=== PATIENT | female | born 1965 | race Caucasian/White ===

== ENCOUNTER 2018-08-16 17:45 | Emergency (ER) | payer BC, SELFPAY ==
[2018-08-16 17:51] VITALS: BP 154/61; PULSE 90; RESP 16; TEMP 37.1; O2SAT 97
--- NOTE | 2018-08-16 18:09 | ED.GENADUL_ITS ---
Discharge Plan Disposition Patient Disposition: HOME Discharge Details Chief Complaint: Laceration Clinical Impression: Laceration of right index finger Primary Care Provider: Mayo Mancia ED Provider: Jake Del Rio Home Meds and New Rx's Prescriptions: No Action multivitamin [One Daily] 1 EACH tablet 1 ea PO DAILY RF: 0 aspirin [Aspir-81] 81 MG tablet,delayed release (DR/EC) 81 mg PO DAILY RF: 0 calcium carb-mag ox-zinc sulf 1 EACH tablet 1 ea PO DAILY RF: 0 glucosamine sulfate [Glucosamine] 500 mg Tablet 500 mg PO DAILY RF: 0 Discharge Instructions Instructions: Finger Laceration (ED) Referrals: Mayo Mancia MD [Primary Care Provider] - 1 week Discharge Data Discharge Date/Time-TO BE ENTERED AT DEPARTURE: 08/16/18 19:19 Medical Decision Making This is a nontoxic-appearing 53-year-old female presenting to the emergency department with a right proximal index finger laceration. Simple layer closure. No complications with laceration repair. Wound was dressed with bacitracin and Band-Aid patient educated on wound care. She will need to return to the emergency department or follow-up with primary care provider in 7 to 10 days for wound evaluation and suture. HPI General Date/Time Provider Initiated Documentation: 08/16/18 18:05 . HPI Narrative: Rosita mary is a 53-year-old female presented to the ED with a right second digit laceration from a steak knife which occurred at home roughly 30 minutes ago. She denies any numbness or tingling of the digit. She was able to get bleeding controlled with direct pressure. She is unsure of her tetanus status Related Data Home Medications Medication Instructions Recorded Confirmed aspirin [Aspir 81] 81 mg PO DAILY tab-cap 09/12/15 08/16/18 calcium carb-mag ox-zinc sulf 1 ea PO DAILY 09/12/15 08/16/18 multivitamin [One Daily] 1 ea PO DAILY 09/12/15 08/16/18 glucosamine sulfate [Glucosamine] 500 mg PO DAILY 08/16/18 08/16/18 Allergies Allergy/AdvReac Type Severity Reaction Status Date / Time amoxicillin Allergy Severe RASH Unverified 08/16/18 17:55 latex Allergy Severe RASH Unverified 08/16/18 17:55 Penicillins Allergy Severe RASH Unverified 08/16/18 17:55 doxycycline AdvReac Intermediate Skin Rash Unverified 08/16/18 17:56 General Stated Complaint: Laceration WALLACE: 4 Review of Systems Constitutional Denies weakness Musculoskeletal Denies joint swelling, Denies numbness, Denies stiffness and Denies tingling Neurologic Denies numbness, Denies tingling, Denies paresthesias and Denies weakness Hematologic/Lymphatic Denies easy bleeding and Denies easy bruising [facility] Social History Smoking/Tobacco Use Status: Never Alcohol Intake: never Drug use: Never Substance use type: does not use Do you feel safe at home: Yes Do you feel safe in your relationship?: Yes Exam Const General: cooperative, healthy appearing and comfortable Nutritional Appearance: average body habitus Orientation: alert, awake and oriented x3 HENMT Head: normal to inspection Ears: hearing grossly normal bilaterally General nose exam: external nose normal Cardio Pulses: normal peripheral pulses Skin General skin exam: no rashes or lesions noted Extrem Right upper extremity: hand Details: normal capillary refill and laceration (Roughly 2 cm laceration involving the lateral aspect of the proximal second digit. No evidence of infection. Bleeding controlled) Course Vital Signs Temperature 37.1 C 08/16/18 17:51 Pulse 90 08/16/18 17:51 Respiratory Rate 16 08/16/18 17:51 Blood Pressure 154/61 H 08/16/18 17:51 Pulse Oximetry 97 08/16/18 17:51 Temperature 37.1 C 08/16/18 17:51 Temperature Source Skin 08/16/18 17:51 Pulse 90 08/16/18 17:51 Respiratory Rate 16 08/16/18 17:51 Respiratory Effort 08/16/18 17:58 Blood Pressure 154/61 H 08/16/18 17:51 Blood Pressure Position Sitting 08/16/18 17:51 Pulse Oximetry 97 08/16/18 17:51 Oxygen Delivery Method Room Air 08/16/18 17:51 Oxygen Flow Rate 0 08/16/18 17:51 Pain Level 1 08/16/18 17:51 Procedures Laceration Laceration 1: Site: hand (Proximal right index) Side (If applicable): right Size (cm): 2 Description: linear Depth: simple, single layer Local Anesthetic: Lidocaine 1% Amount of anesthesia used (mL): 2 Pre-repair: wound explored and irrigated extensively Skin layer closed with: other (Prolene) Size (cm): 6-0 Number of sutures: 3 Technique: simple, interrupted Nerve Block Nerve Block 1: Time out performed: No Local Anesthetic: Lidocaine 1% Amount of anesthesia used (mL): 3 Nerve Blocks: digital (right index finger) Patient Tolerated Procedure: well Complications: none
[2018-08-16] MEDS: Tetanus & Diphtheria Tox,ADULT 0.5 ML VIAL IM (18:24)
== END 2018-08-16 19:19 | disposition home or self-care (01) ==
PROVIDERS: Emergency Provider Physician Assistant; PCP Family Medicine
DX: S61.210A Laceration without foreign body of right index finger without damage to nail, initial encounter (principal); W26.0XXA Contact with knife, initial encounter
CPT/HCPCS: 12001; 90471

== ENCOUNTER 2018-09-03 16:08 | Outpatient (REF) | payer BC, SELFPAY ==
--- NOTE | 2018-09-03 14:00 | SKI_PTH ---
PATIENT: Ailyn Merrill LOC: YO U#:[id number] AGE/SX: 53/F ROOM: RE09/03/[address]: Angelika Womack APRN : 1965 BED: DIS: 09/03/2018 SPEC #: [id number] RECD: 09/04/18 11:57 STATUS: ANALIA REKeri #: [id number] SRIDEVI: 09/03/18 14:[address]: Angelika Womack DEPT: Surgical Specimen RECD BY: Bessie Gilliam ENTERED: 09/04/18 11:58 SP TYPE: [facility] DR: Mayo Mancia MD Tissues: 1 - SKIN BIOPSY(SHAVE/PUNCH) Procedures: SKIN LEVEL 4 Comments: [id number]
== END 2018-09-03 16:28 ==
LOC: LBN 16:08
PROVIDERS: PCP Family Medicine
DX: D22.5 Melanocytic nevi of trunk (principal)
CPT/HCPCS: 88305

== ENCOUNTER 2019-01-22 07:00 | Outpatient (CLI) | payer BC, SELFPAY ==
[2019-01-22 13:17] LABS: Calculated LDL 191 mg/dL; Cholesterol 293 mg/dL (50-200); HDL Cholesterol 89 mg/dL (40-60); Triglyceride 66 mg/dL (30-150)
[2019-01-22 13:34] LABS: Hemoglobin A1C 5.6 % (4.5-6.2)
== END 2019-01-22 07:20 ==
PROVIDERS: Visit Provider Nurse Practitioner
DX: Z13.6 Encounter for screening for cardiovascular disorders (principal); Z13.1 Encounter for screening for diabetes mellitus
CPT/HCPCS: 36415; 80061; 83036

== ENCOUNTER 2023-01-02 18:48 | Emergency (ER) | payer BC, SELFPAY ==
[2023-01-02] VITALS (37 sets, daily range): BP systolic 120–157; BP diastolic 46–80; PULSE 76–111; RESP 14–28; TEMP 37.2; O2SAT 98
--- NOTE | 2023-01-02 19:49 | ED.GENADUL_ITS ---
Discharge Plan Disposition Patient Disposition: Home Discharge Details Clinical Impression: Pelvic mass in female, Abdominal pain, Cholelithiasis, Nausea, Strabismus Primary Care Provider: Compa Awan ED Provider: Lesvia Wilson Home Meds and New Rx's Prescriptions: New ondansetron 4 mg tablet,disintegrating 4 mg PO .Every 3 hours PRNQty: 10 0RF No Action [place] Oil-1000 1,000-200 mg capsule 1 cap PO DAILY ondansetron HCl [Zofran] 4 mg tablet 4 mg PO Q8H PRN (Reason: nausea and vomiting) Qty: 30 0RF multivitamin [One Daily] 1 EACH tablet 1 ea PO DAILY calcium carb-mag ox-zinc sulf 1 EACH tablet 1 ea PO DAILY glucosamine sulfate [Glucosamine] 500 mg Tablet 500 mg PO DAILY Discharge Instructions Instructions: Gallstones (ED), Acute Nausea and Vomiting (ED), Abdominal Pain (ED) Additional Instructions: 1. You should be contacted by the gynecology office for a follow-up appointment. Tell them you were seen in the emergency department and had a pelvic mass seen on CT scan. The radiologist recommended a pelvic ultrasound for further evaluation. 2. You should alternate 1000 mg of acetaminophen every 3 hours with 400 to 600 mg of ibuprofen as needed for pain. 3. Take ondansetron (Zofran) every 3 hours as needed for nausea. 4. Return to the emergency department for any new or worrisome symptoms. Discharge Data Discharge Physician: Lesvia Wilson Medical Decision Making This is a 57-year-old female who does not seek regular medical care who presents with 2 days of of abdominal pain which she describes as 10 out of 10 in severity. She has not taken anything for the pain at home. She has had nausea but no vomiting. She has a history of IBS. She denies any dysuria. She has had no previous abdominal surgery. She denies any fever or vaginal discharge. She was seen at [facility] urgent care today and had a urine test. The pain came on gradually and is located in the right lower quadrant. She certainly could have appendicitis or right-sided diverticulitis. The patient does have a history of IBS but might also have undiagnosed Crohn's disease. My plan is to obtain blood work and establish an IV. We will check her white count for leukocytosis and left shift. We will check her H&H and her comprehensive metabolic panel for LFTs electrolytes glucose and renal function. We will obtain a CT of the abdomen and pelvis and I will order acetaminophen and ketorolac for pain Differential Diagnosis Differential Diagnosis: Appendicitis. Ovarian torsion or abscess, UTI, right- sided diverticulitis Medical Records Medical records reviewed: Yes I reviewed the patient's medical records. Imaging Data Radiologic Study: Imaging: CT Scan (CT abdomen and pelvis with IV contrast) Radiologist's impression: Impression: 1. Pelvic mass, possible cervical. Recommend pelvic ultrasound for further evaluation. 2. Benign hepatic hypodensities. No further imaging required. 3. Cholelithiasis and gallbladder sludge without evidence of acute cholecystitis Lab Data Lab results reviewed: Yes I reviewed the patient's lab results. HPI General Mode of arrival: ambulatory . Date/Time Provider Initiated Documentation: 01/02/23 19:49 . Limitations to Documentation: no limitations . Information obtained by: patient, family, RN notes reviewed and old records reviewed . History of Present Illness with intensity rated at 10. and is localized to the abdomen. and it has been constant. Patient notes no other symptoms. and loss of appetite; denies chest pain, cough, fever/chills and shortness of breath. Patient did receive the following treatments prior to arrival, none HPI Narrative: Time seen was 1950 in bed 6. The patient is a 57-year-old female brought in by her for right lower quadrant abdominal pain. The patient, who has a history of IBS, states she does not see doctors on a regular basis. She has no prior history of abdominal surgeries and is postmenopausal. She states that the pain began yesterday at about 9 AM. She had eaten cereal at about 715. She states the pain began in the right lower quadrant and has gradually increased in severity. She describes it as constant and crampy though it waxes and wanes in severity. Currently the pain is 10 out of 10. She has not taken any medications for the pain. She usually walks about a mile a day and today she felt that walking aggravated the pain. She has had nausea without vomiting. She states that she does not usually get diarrhea with her IBS but she often will have formed stools multiple times a day. Today she had 5 formed stools. She denies any dysuria or vaginal discharge. She denies any fevers or chills. She has not taken any medications for the pain. They went to urgent care today and did a urine sample which she was told was negative. The pain radiates from the right lower quadrant to the left lower quadrant. She has never had any past similar episodes. She denies any trauma. She denies any dizziness headache chest pain shortness of breath or back pain. She denies any numbness tingling or weakness in her legs. Related Data Home Medications Medication Instructions Recorded Confirmed calcium carbonate 333 mg-magnesium 1 ea PO DAILY 09/12/15 01/02/23 oxide 133 mg-zinc sulf 5 mg tablet multivitamin (One Daily tablet) 1 ea PO DAILY 09/12/15 01/02/23 glucosamine sulfate 500 mg tablet 500 mg PO DAILY 08/16/18 01/02/23 (Glucosamine) salmon oil-omega-3 fatty acids 1 cap PO DAILY 08/24/18 01/02/23 1,000 mg-200 mg capsule (Bow[place]in Oil-) ondansetron HCl 4 mg tablet 4 mg PO Q8H PRN nausea and 01/21/19 01/02/23 (Zofran) vomiting #30 tabs ondansetron 4 mg disintegrating 4 mg PO .Every 3 hours PRN #10 tabs 01/03/23 tablet Previous Rx's Medication Instructions Recorded ondansetron HCl 4 mg tablet 4 mg PO Q8H PRN nausea and 01/21/19 (Zofran) vomiting #30 tabs ondansetron 4 mg disintegrating 4 mg PO .Every 3 hours PRN #10 tabs 01/03/23 tablet Allergies Allergy/AdvReac Type Severity Reaction Status Date / Time amoxicillin Allergy Severe RASH Verified 01/02/23 19:11 latex Allergy Severe RASH Verified 01/02/23 19:11 Penicillins Allergy Severe RASH Verified 01/02/23 19:11 adhesive Allergy Intermediate Redness Verified 01/02/23 19:11 and Swelling benzalkonium Allergy Intermediate Skin Verified 01/02/23 19:11 Redness and Swelling doxycycline AdvReac Intermediate Skin Rash Verified 01/02/23 19:11 vaccine adjuvant system, AdvReac Intermediate Localized Verified 01/02/23 19:11 [id number] liposomal swelling, [From Shingrix (PF)] nausea, GI sx, fatigue varicella-zoster virus AdvReac Intermediate Localized Verified 01/02/23 19:11 glycoprotein E, recombinant swelling, [From Shingrix (PF)] nausea, GI sx, fatigue General Stated Complaint: Abd Prob WALLACE: 3 Review of Systems Narrative: see hpi Constitutional Constitutional: Reports anorexia, Denies chills, Denies fever(s), Denies headache(s) and Reports poor appetite Eyes Comments: The patient has a history of bilateral lazy eyes. She has never had strabismus surgery ENT Ears, Nose, Mouth, and Throat: Denies dysphagia, Denies vertigo, Denies dizziness, Denies headache(s), Denies neck pain and Denies odynophagia Cardiovascular Cardiovascular: Denies chest pain, Denies diaphoresis, Denies syncope and Denies dyspnea Respiratory Respiratory: Denies cough and Denies dyspnea Gastrointestinal Gastrointestinal: Reports abdominal pain, Denies belching, Denies melena, Denies hematochezia, Denies change in bowel habits, Denies change in stool character, Denies coffee ground emesis, Denies constipation, Reports cramping, Denies dysphagia, Denies excessive flatus, Denies heartburn, Denies fecal incontinence, Denies diarrhea, Denies loose stools, Reports nausea, Denies odynophagia, Denies vomiting and Denies hematemesis Genitourinary Genitourinary: Denies hematuria, Denies dysuria, Reports pelvic pain and Denies vaginal discharge Comments: The patient is postmenopausal. The patient has had Pap smears in the past but not for many years. Musculoskeletal Musculoskeletal: Denies arthralgias, Denies neck pain, Denies numbness and Denies tingling Integumentary/Breasts Skin/Breast: Denies photosensitivity and Denies wounds Neurologic Neurologic: Denies vertigo, Denies dizziness, Denies syncope, Denies headache(s), Denies numbness, Denies sensory deficit and Denies tingling Psychiatric Psychiatric: Reports anxiety Endocrine Endocrine: Denies polyuria Hematologic/Lymphatic Comments: No history of immune compromise. She is not on therapeutic anticoagulants Allergic/Immunologic Comments: Allergies per nursing note PFSH All Active Problems (Updated 01/03/23 @ 00:05 by Lesvia Wilson MD) Pelvic mass in female (Acute) Abdominal pain (Acute) Cholelithiasis (Acute) Nausea (Acute) Strabismus (Acute) Seasonal allergic reaction (Chronic) Vaginitis (Acute) Anxiety disorder (Acute) Atypical mole (Chronic) Rash (Acute) Social History Smoking/Tobacco Use Status: Never Smoking risk assessment performed?: Yes Alcohol Intake: never Drug use: Never Substance use type: does not use Do you feel safe at home: Yes Do you feel safe in your relationship?: Yes Female Reproductive History Menstrual Menopause type: natural Exam Narrative Exam Narrative: The patient is a well-developed well-nourished female lying on the stretcher. She appears mildly uncomfortable. She is normotensive, she is not tachycardic tachypneic or febrile her room air O2 sat is 98%. Her GCS is 15 Const General: cooperative, healthy appearing, comfortable, no acute distress, well developed, well groomed and well hydrated Nutritional Appearance: average body habitus and well nourished Orientation: alert, awake and oriented x3 HENMT Head: normal to inspection, normocephalic and atraumatic Ears: hearing grossly normal bilaterally and external ears normal General nose exam: external nose normal, nares normal and no nasal discharge Face and sinus: normal facial exam, sinuses nontender and face symmetric Mouth: oral mucosae normal, lip normal, tongue normal, oropharynx normal, moist mucous membranes and other (Normal phonation. The patient is handling secretions.) Throat: posterior oropharynx normal and uvula midline Eyes Eyelids: eyelids normal Conjunctivae: conjunctivae normal Sclera: sclerae normal Cornea: corneas normal Pupils: PERRL EOM: EOM intact bilaterally and No nystagmus Other: The patient has strabismus bilaterally. Neck Neck: normal visual inspection, full ROM, no lymphadenopathy, no meningeal signs, trachea midline and supple Lymphatic: no lymphadenopathy noted Chest Chest: normal inspection of the chest Resp Effort & Inspection: normal respiratory effort, able to speak in complete sentences, no audible wheezes, no nasal flaring, no respiratory distress, no retractions, no stridor, not tachypneic, no tracheal deviation, no use of accessory muscles, No prolonged expiratory phase and other (Normal inspiratory to expiratory ratio.) Auscultation: clear to auscultation bilaterally, no rales, no rhonchi, no wheezes and no rubs Tactile Fremitus: tactile fremitus absent Cardio Jugular venous pressure: no JVD Palpation: normal PMI Rate: regular rate Rhythm: regular rhythm Heart Sounds: S1 normal, S2 normal, no gallops, no murmurs and no rubs GI Inspection: normal to inspection and non-distended Palpation: soft, no hepatosplenomegaly and no guarding Percussion: normal to percussion Auscultation: normal bowel sounds General: No CVA tenderness Back/Spine/Pelvis Back: no CVA tenderness and No back tenderness Cervical Spine: normal cervical lordosis, cervical ROM normal, No cervical muscular tenderness, No pain with cervical ROM, No cervical spinal tenderness and No step off deformity Thoracic/Lumbar Spine: thoracic and lumbar spine normal to inspection, No thoracic spinal tenderness and No lumbar spinal tenderness Pelvis: no pain with anterior-posterior compression and no pain with lateral compression Skin General skin exam: no rashes or lesions noted, turgor normal, no petechiae, no purpura and other (Skin is normal for ethnicity.) Lesions: no lesions Rashes: no rashes Trauma: no lacerations or abrasions Neuro General: patient alert, patient awake, patient oriented x3, moves all extremities, no meningeal signs, no focal motor deficits and CN's II-XI intact bilaterally Cranial Nerves: CN's II-XI intact bilaterally, PERRL, accommodation normal, EOM intact bilaterally, no nystagmus, facial strength normal, tongue midline, hearing normal and no nystagmus Cognition: normal cognition Speech: speech normal Gait: normal gait Motor: muscle tone normal throughout and strength 5/5 throughout Sensory Exam: no sensory deficits noted Extrem General: normal to inspection, full ROM, capillary refill normal, no clubbing, cyanosis or edema and no calf tenderness Psych Appearance: grossly normal Affect: normal affect Attitude: cooperative Thought Process: normal Thought Content: normal Insight: insight good Judgment: judgment good Other: The patient appears to have capacity make medical decisions. Course Reevaluation(s) Time: 00:00 Reevaluation: I have discussed the findings of the CT including the cholelithiasis and the pelvic mass. I have advised her that the gynecology office will be calling her to arrange a follow-up appointment and likely outpatient ultrasound. I have advised her to alternate acetaminophen every 3 hours with ibuprofen as needed for pain. She is requesting a prescription for nausea medicine. I will discharge her with some Zofran ODT. Vital Signs Vital signs: Vital Signs Temperature 37.2 C 01/02/23 19:06 Pulse 92 H 01/02/23 19:06 Respiratory Rate 16 01/02/23 19:06 Blood Pressure 138/69 01/02/23 19:06 Pulse Oximetry 98 01/02/23 19:06 Temperature 37.2 C 01/02/23 19:06 Temperature Source Skin 01/02/23 19:06 Pulse 92 H 01/02/23 19:06 Respiratory Rate 16 01/02/23 19:06 Respiratory Effort Normal 01/02/23 19:06 Blood Pressure 138/69 01/02/23 19:06 Blood Pressure Position Sitting 01/02/23 19:06 Pulse Oximetry 98 01/02/23 19:06 Oxygen Delivery Method Room Air 01/02/23 19:06 Oxygen Flow Rate 0 01/02/23 19:06 Pain Level 9 01/02/23 19:06 Critical Care Time Critical Care Time Critical Care Time: Yes Total Critical Care Time: 39 Attestation: This includes time at the bedside, review of labs and x-rays review of old records.
[2023-01-02] MEDS: Ketorolac 15 MG/ML VIAL IVP (20:13)
[2023-01-02 20:29] LABS: Abs Immature Grans 0.04 10^3/uL (0.0-0.06); Absolute Basophil Count 0.03 10^3/uL (0.0-0.2); Absolute Lymphocyte Count 1.36 10^3/uL (1.2-3.4); Absolute Monocyte Count 0.63 10^3/uL (0.1-0.8); Absolute Neutrophil Count 7.27 10^3/uL (1.2-6.7); Basophils % 0.3; HCT 42.8 % (36.0-46.0); HGB 14.6 g/dL (11.2-15.7); Immature Grans % 0.4; Lymphocytes % 14.6; MCH 29.8 pg (27.0-33.0); MCHC 34.1 % (32.0-36.0); MCV 87 fL (80-95); MPV 10.8 fL (8.0-11.0); Monocytes % 6.8; Neutrophils % 77.9; Platelet Count 280 10^3/uL (130-400); RDW 13.3 % (11.7-14.6); RDW-SD 42.7 fL; WBC 9.33 10^3/uL (4.4-10.8)
[2023-01-02 20:42] LABS: Lipase 22 U/L (16-77)
[2023-01-02 20:44] LABS: Prothrombin Time 10.1 sec (9.3-11.0)
[2023-01-02 20:50] LABS: ALT 38 U/L (14-59); AST 25 U/L (15-37); Albumin 4.1 g/dL (3.4-5.0); Alkaline Phosphatase 90 U/L (46-116); Anion Gap 8.6 mmol/L (3-11); BUN 12 mg/dL (7-18); Bilirubin, Total 0.4 mg/dL (0.2-1.0); CO2 28.4 mmol/L (21.0-32.0); CREATININE 0.8 mg/dL (0.55-1.02); Calcium 9.5 mg/dL (8.5-10.1); Chloride 97 mmol/L (98-107); Estimated GFR 85.35 (mL/min/1.73m2); Glucose 114 mg/dL (74-106); Magnesium 1.9 mg/dL (1.8-2.4); Potassium 4.1 mmol/L (3.5-5.1); Sodium 134 mmol/L (136-145); Total Protein 8.4 g/dL (6.4-8.2); Troponin I < 50 ng/L (<or=60)
[2023-01-02] MEDS: Normal Saline 1,000 ML 1000 ML IV (21:01)
[2023-01-02 21:49] LABS: Bilirubin Negative (Negative); Blood Negative (Negative); Clarity Clear (Clear); Glucose Negative (Negative); Ketones >=160 mg/dL (Negative); Leukocyte Esterase Negative (Negative); Nitrite Negative (Negative); Urobilinogen 0.2 mg/dL (Up to 0.2)
[2023-01-02 21:59] LABS: Bacteria Rare HPF (Negative); C & S Indicated? No; Casts Negative LPF (Negative); Crystals Negative HPF (Negative); Epithelial Cells Rare HPF (Negative); Mucus Moderate (Negative); RBC 0-2 HPF (0-2); WBC Negative HPF (0-5)
[2023-01-02] MEDS: Normal Saline - Diluent 50 ML VIAL IJ (22:36)
[2023-01-02] MEDS: Omnipaque 350 MG/ML 100 ML BTL IJ (22:36)
[2023-01-02] MEDS: Normal Saline Flush 10 ML SYR IVP (22:36)
[2023-01-02] MEDS: ACETAMINOPHEN 1,000 MG/100 ML BTL 400 MG IVPB (22:37)
--- NOTE | 2023-01-02 22:40 | DI.CT_ITS ---
Exam(s) CT ABDOMEN PELVIS W EXAM: CT ABDOMEN PELVIS W CLINICAL HISTORY: RLQ pain TECHNIQUE: Imaging Protocol: Axial computed tomography images with coronal and sagittal reformatted images were created and reviewed CONTRAST MATERIAL: Intravenous: Omnipaque 350 Contrast volume:7 mL Oral: No COMPARISON: No exams were available for comparison FINDINGS: ABDOMEN: Lung Bases: There is a 0.5 cm nodule at the base of the right lower lobe. Pendant atelectatic change s are seen in the lung bases. Liver: Normal density. There are few tiny less than 3 mm densities seen in the liver. They are too s mall for further characterization. There is a 0.5 cm round well-circumscribed hypodense nodule in th e left lobe of the liver. It is too small for further characterization but reflect a small cyst. Portal, Superior Mesenteric, and Splenic Veins: Unremarkable. Gallbladder and Biliary Tract: Gallstones. No biliary ductal dilatation. Probable small amount of s ludge. Pancreas: Normal density, no abnormal calcifications or inflammatory process. Spleen: Calcified granuloma. Adrenals: No masses seen. Kidneys: Normal size, contour and axis. No radiodense stones or obstructive uropathy. No masses seen. Abdominal Aorta: Abdominal portion non-dilated. Atherosclerosis. Bowel: No obstruction or bowel wall thickening. No evidence of appendicitis. Peritoneal Cavity: There is a small amount of ascites in the pelvis. No free air. Lymph Nodes: Within normal limits. Bones: Within normal limits for the patient's age. Soft Tissues: Unremarkable. PELVIS: Bladder: Symmetric distention, no gross wall thickening. Reproductive Organs: There is a heterogeneous 4.9 x 4.3 cm soft tissue mass in the cul-de-sac. It li es in close proximity to the cervix, uterus and the right ovary. It does appear to be separate from the adjacent rectosigmoid colon. It is predominantly solid but there does appear to be a cystic comp onent posteriorly on the right measuring 1.3 x 1.5 cm. Lymph Nodes: Within normal limits. Bones: Within normal limits for the patient's age. IMPRESSION: 1. Pelvic mass measuring at least 4.9 x 4.3 cm in the cul-de-sac. It lies in close proximity to the cervix, uterus and right ovary. Neoplasm should be considered. Pelvic ultrasound and or MRI of the pelvis is recommended for further evaluation. 2. Small amount of pelvic ascites. 3. 0.5 cm nodule at the base of the right lower lobe. CT scan of the chest is recommended for furthe r evaluation. Unexpected findings RADIATION DOSE DELIVERED: 479.04mGy.cm Total DLP DATA REPOSITORY: All CT scans at this facility are submitted to the National Radiology Data Registry (NRDR) Dose Index Registry (DIR) with the [employer] [place] [employer] (A[employer]). RADIATION OPTIMIZATION: All CT scans at this facility use at least one of these dose optimization te chniques: automated exposure control; mA and/or kV adjustment per patient size (includes targeted exa ms where dose is matched to clinical indication); or iterative reconstruction.
--- NOTE | 2023-01-02 23:32 | DI.VRAD_ITS ---
PROCEDURE INFORMATION: Exam: CT Abdomen And Pelvis With Contrast Exam date and time: 01/02/2023 10:34 PM Age: 57 years old Clinical indication: Abdominal pain; Other: Rlq TECHNIQUE: Imaging protocol: Computed tomography of the abdomen and pelvis with contrast. Radiation optimization: All CT scans at this facility use at least one of these dose optimization techniques: automated exposure control; mA and/or kV adjustment per patient size (includes targeted exams where dose is matched to clinical indication); or iterative reconstruction. Contrast material: OMNI 350; Contrast volume: 70 ml; Contrast route: INTRAVENOUS (IV); COMPARISON: No relevant prior studies available. FINDINGS: Lungs: Minimal scarring and/or subsegmental atelectasis in the posterior lung bases. Diaphragm: Small sliding hiatal hernia. Liver: Subcentimeter hypodensities throughout the liver, too small to characterize, likely benign cysts or hemangiomas. Gallbladder and bile ducts: Dependent gallstone. Slight dependent hyperdensity suggests gallbladder sludge. No gallbladder wall thickening or pericholecystic fluid. No biliary duct dilatation. Pancreas: Normal. No ductal dilation. Spleen: Single small round calcification in the spleen. Adrenal glands: Normal. No mass. Kidneys and ureters: Bilateral extrarenal pelvis. No urolithiasis or hydroureteronephrosis. Stomach and bowel: Unremarkable. No obstruction. No mucosal thickening. Appendix: No evidence of appendicitis. Intraperitoneal space: Mild pelvic free fluid. No intraperitoneal free air. Vasculature: Minimal calcified atherosclerotic disease. No aneurysm. Pelvic phleboliths. Lymph nodes: Unremarkable. No enlarged lymph nodes. Urinary bladder: Urinary bladder is nondistended. Reproductive: Ill-defined heterogeneous mass deep in the pelvis, approximately 5.0 x 4.5 x 5.1 cm, between the rectum and uterus, appearing distinct from the right ovary. Bones/joints: Unremarkable. No acute fracture. Soft tissues: Unremarkable. IMPRESSION: 1. Pelvic mass, possibly cervical. Recommend pelvic ultrasound for further evaluation. 2. Benign hepatic hypodensities. No further imaging required. 3. Cholelithiasis and gallbladder sludge without evidence of acute cholecystitis. Dictated and Authenticated by: Conrado Mcdermott MD. Ordering:RUBEN Lakhani MD
--- NOTE | 2023-01-03 00:01 | NUR.NOTE ---
Referral faxed to [facility] next available appt. for f/u of pelvic mass on CT. Nursing Note:
[2023-01-03] MEDS: Ondansetron O.D.T. 4 MG TABEF, 3 TABS/BTL PO (00:05)
== END 2023-01-03 00:19 | disposition home or self-care (01) ==
PROVIDERS: Emergency Provider Emergency Medicine Emergency Medical Services; PCP Nurse Practitioner Family
DX: R10.2 Pelvic and perineal pain (principal); R10.31 Right lower quadrant pain; R19.00 Intra-abdominal and pelvic swelling, mass and lump, unspecified site; K58.9 Irritable bowel syndrome, unspecified
CPT/HCPCS: 80053; 83690; 96361; 96365; 96375; 99285; 74177; 81003; 81015; 83735; 84484; 85025; 85610; J0131; J1885; J3490

== ENCOUNTER 2023-01-04 08:56 | Emergency (ER) | payer BC, SELFPAY ==
[2023-01-04] VITALS (37 sets, daily range): BP systolic 111–142; BP diastolic 45–82; PULSE 77–114; RESP 19–20; TEMP 36.7; O2SAT 92–100
--- NOTE | 2023-01-04 09:15 | DI.CT_ITS ---
Exam(s) CT THORAX ABD/PEL CTA EXAM: CT THORAX ABD/PEL CTA CLINICAL HISTORY: right sided abdominal pain, lung nodule. TECHNIQUE: Imaging Protocol: Axial computed tomography images with coronal and sagittal reformatted images were created and reviewed CONTRAST MATERIAL: Intravenous: Omnipaque 350 Contrast volume:100 ml Oral: no COMPARISON: CT CT ABDOMEN PELVIS W from 01/02/2023 FINDINGS: CHEST: Tracheobronchial tree: Patent where visualized. Pulmonary parenchyma: No consolidation or dominant measurable mass. Tiny nodules, measuring 2 and 3 millimeters in the right lower lobe. Pleura: No effusion or pneumothorax. Lymph nodes: Within normal limits. Aorta: Thoracic portion non-dilated. Heart: Not dilated. No pericardial effusion. Bones: Unremarkable for age. No lytic or blastic lesions.No compression fractures. ABDOMEN and PELVIS: Liver: Normal density. No measurable mass. Gallbladder and biliary tract: A few small gallstones noted. No wall thickening. No biliary dilatat ion. Pancreas: Normal density, no abnormal calcifications or inflammatory process. Spleen: Normal. Kidneys: Normal size, contour and axis. No radiodense stones or obstructive uropathy. No suspicious m asses seen. Adrenal glands: No masses seen. Aorta: Abdominal portion non-dilated. Marked atherosclerotic changes. Lymph nodes: Within normal limits. Soft tissues: Unremarkable. Bladder: Unremarkable. Bowel: No obstruction or bowel wall thickening. Peritoneal cavity: No ascites. No focal collection or mesenteric inflammatory response. Bones: Unremarkable for age. Reproductive organs: Left ovary and uterus unremarkable. Right ovary mildly enlarged and heterogeneo us. Again noted is a pelvic mass measuring 7 cm in greatest dimension which is somewhat high density material which could be related to hemorrhage or solid tissue. Findings could represent a large hem orrhagic lesion of the right ovary. Malignancy also possibility. IMPRESSION: Chest: Tiny nodules right lung base. For low risk patient no further follow-up recommended. For hig h risk patients optional low-dose chest CT 12 months. (Jaime) Pelvic mass again noted posterior to right ovary and posterior to the uterus. No significant change in appearance. Recommend pelvic MRI. RADIATION DOSE DELIVERED: Total DLP DATA REPOSITORY: All CT scans at this facility are submitted to the National Radiology Data Registry (NRDR) Dose Index Registry (DIR) with the [employer] (ACR). RADIATION OPTIMIZATION: All CT scans at this facility use at least one of these dose optimization te chniques: automated exposure control; mA and/or kV adjustment per patient size (includes targeted exa ms where dose is matched to clinical indication); or iterative reconstruction.
--- NOTE | 2023-01-04 09:17 | W.ED.GENAD ---
Discharge Plan Disposition Patient Disposition: Home Condition: Stable Discharge Details Clinical Impression: Pelvic mass in female, Abdominal pain Primary Care Provider: Compa Awan ED Provider: Alok Barron Home Meds and New Rx's Prescriptions: New oxycodone 5 mg tablet 5 mg PO TID PRN (Reason: pain) Qty: 10 0RF Continued Yantis Oil-1000 1,000-200 mg capsule 1 cap PO DAILY ondansetron HCl [Zofran] 4 mg tablet 4 mg PO Q8H PRN (Reason: nausea and vomiting) Qty: 30 0RF multivitamin [One Daily] 1 EACH tablet 1 ea PO DAILY calcium carb-mag ox-zinc sulf 1 EACH tablet 1 ea PO DAILY glucosamine sulfate [Glucosamine] 500 mg Tablet 500 mg PO DAILY ondansetron 4 mg tablet,disintegrating 4 mg PO .Every 3 hours PRNQty: 10 0RF Discharge Instructions Additional Instructions: Your right ovary was mildly enlarged and you have the pelvic mass that will need additional outpatient testing follow up with women[facility] as planned this week if you have severe worsening pain, persistent vomiting or feel more ill return to the emergency department Medical Decision Making 57 yo female who has no significant chronic medical problems and denies prior surgeries comes in with chief complaint of right lower abdominal pain that radiates to the back. She was seen in the ED 2 days ago and had labs and a CT which showed a pelvic mass otherwise no acute findings. She had been doing better but states pain returned last night and has not gone away and is 10/10. She arrives screaming in pain. She localizes the pain to the right lower abdomen. She is tender in the lower abdomen even with light palpation. No distention. Given degree of pain will repeat cbc, cmp, lipase and CTA chest/abd/pelvis. She has no chest pain but had a lung nodule on her prior abd/pelvis ct and was recommended to have f/u ct chest so will also do cta chest with her abd/pelvis cta today. imaging shows no change on ct of the mass, has a lung nodule but no smoking history so no follow up needed. Able to get u/s showing heterogenous nonvascular mass in low pelvis of unclear etiology, and also has a right ovary that's enlarged and hypervascular, patient stable and feels better though still has pain, will consult obgyn Dr. Ford evaluated images and the pt. The patient is no longer having any pain and had her last dose of pain meds approximately hours ago. Discussed with pt unclear etiology for her mass and also did educate on ovarian torsion and pt is not of child bearing age and after discussion with her given resolution of pain she prefers discharge with outpatient follow up, she understands importance to return if pain returns or if she feels more ill. Differential Diagnosis Differential Diagnosis: mesenteric ischemia, kidney stone, appendicitis Medical Records Medical records reviewed: Yes I reviewed the patient's medical records. Imaging Data Radiologic Study: Attestation: I personally reviewed and interpreted this imaging study as follows: Imaging: CT Scan Radiologist's impression: IMPRESSION: 1. 7 cm masslike process between the lower uterine segment and the rectum suspicious for pelvic hematoma, possibly related to a hemorrhagic ovarian cyst or ovarian neoplasm. Recommend further evaluation with ultrasound contrast-enhanced MRI. There is no evidence of active hemorrhage in the process appears similar in size to the 01/02/2023 CT. 2. Few tiny indeterminate pulmonary nodules in right lower lung.For patients at low risk (minimal or absent history of smoking and of other known risk factors), no routine follow-up is indicated. For patients at high risk (history of smoking or of other known risk factors), consider optional CT Chest at 12 months. (Reference: Adrianna) Radiologic Study #2: Attestation: I personally reviewed and interpreted this imaging study as follows: Imaging: Ultrasound Radiologist's impression: IMPRESSION: 1. 7 cm masslike process between the lower uterine segment and the rectum suspicious for pelvic hematoma, possibly related to a hemorrhagic ovarian cyst or ovarian neoplasm. Recommend further evaluation with ultrasound contrast-enhanced MRI. There is no evidence of active hemorrhage in the process appears similar in size to the 01/02/2023 CT. 2. Few tiny indeterminate pulmonary nodules in right lower lung.For patients at low risk (minimal or absent history of smoking and of other known risk factors), no routine follow-up is indicated. For patients at high risk (history of smoking or of other known risk factors), consider optional CT Chest at 12 months. (Reference: Adrianna) Lab Data Lab results reviewed: Yes I reviewed the patient's lab results. HPI General Mode of arrival: ambulatory. Date/Time Provider Initiated Documentation: 01/04/23 09:00. Limitations to Documentation: no limitations. Information obtained by: patient. History of Present Illness 57 year old F presents to the emergency department with the chief complaint of right lower abdominal pain, described as severe, with intensity rated at 10. Quality is described as sharp, and is localized to the abdomen. Patient reports radiation to back. Patient started experiencing this day(s) (3) and it has been intermittent. No relieving factors improve symptom(s), No exacerbating factors reported . Patient notes denies chest pain and shortness of breath. Related Data Home Medications Medication Instructions Recorded Confirmed calcium carbonate 333 mg-magnesium 1 ea PO DAILY 09/12/15 01/04/23 oxide 133 mg-zinc sulf 5 mg tablet multivitamin (One Daily tablet) 1 ea PO DAILY 09/12/15 01/04/23 glucosamine sulfate 500 mg tablet 500 mg PO DAILY 08/16/18 01/04/23 (Glucosamine) salmon oil-omega-3 fatty acids 1 cap PO DAILY 08/24/18 01/04/23 1,000 mg-200 mg capsule (Yantis Oil-) ondansetron HCl 4 mg tablet 4 mg PO Q8H PRN nausea and 01/21/19 01/04/23 (Zofran) vomiting #30 tabs ondansetron 4 mg disintegrating 4 mg PO .Every 3 hours PRN #10 tabs 01/03/23 01/04/23 tablet oxycodone 5 mg tablet 5 mg PO TID PRN pain #10 tabs 01/04/23 Previous Rx's Medication Instructions Recorded ondansetron HCl 4 mg tablet 4 mg PO Q8H PRN nausea and 01/21/19 (Zofran) vomiting #30 tabs ondansetron 4 mg disintegrating 4 mg PO .Every 3 hours PRN #10 tabs 01/03/23 tablet oxycodone 5 mg tablet 5 mg PO TID PRN pain #10 tabs 01/04/23 Allergies Allergy/AdvReac Type Severity Reaction Status Date / Time amoxicillin Allergy Severe RASH Verified 01/04/23 09:05 latex Allergy Severe RASH Verified 01/04/23 09:05 Penicillins Allergy Severe RASH Verified 01/04/23 09:05 adhesive Allergy Intermediate Redness Verified 01/04/23 09:05 and Swelling benzalkonium Allergy Intermediate Skin Verified 01/04/23 09:05 Redness and Swelling doxycycline AdvReac Intermediate Skin Rash Verified 01/04/23 09:05 vaccine adjuvant system, AdvReac Intermediate Localized Verified 01/04/23 09:05 [id number] liposomal swelling, [From Shingrix (PF)] nausea, GI sx, fatigue varicella-zoster virus AdvReac Intermediate Localized Verified 01/04/23 09:05 glycoprotein E, recombinant swelling, [From Shingrix (PF)] nausea, GI sx, fatigue General Stated Complaint: Abd Prob WALLACE: 3 Review of Systems All systems reviewed & are unremarkable except as noted in HPI and below Constitutional Constitutional: Denies chills, Denies fever(s) and Denies weakness Cardiovascular Cardiovascular: Denies chest pain and Denies dyspnea Respiratory Respiratory: Denies cough and Denies dyspnea Gastrointestinal Gastrointestinal: Reports abdominal pain and Denies vomiting Genitourinary Genitourinary: Denies dysuria Musculoskeletal Musculoskeletal: Denies joint swelling Integumentary/Breasts Skin/Breast: Denies rash Neurologic Neurologic: Denies weakness Endocrine Endocrine: Denies cold intolerance PFSH All Active Problems (Updated 01/04/23 @ 15:11 by Alok Barron MD) Pelvic mass in female (Acute) Abdominal pain (Acute) Cholelithiasis (Acute) Nausea (Acute) Strabismus (Acute) Seasonal allergic reaction (Chronic) Vaginitis (Acute) Anxiety disorder (Acute) Atypical mole (Chronic) Rash (Acute) Social History Smoking/Tobacco Use Status: Never Smoking risk assessment performed?: Yes Alcohol Intake: never Drug use: Never Substance use type: does not use Do you feel safe at home: Yes Do you feel safe in your relationship?: Yes Female Reproductive History Menstrual Menopause type: natural Exam Const General: other (screaming in pain) Orientation: alert [facility] Head: normal to inspection Ears: external ears normal General nose exam: external nose normal Mouth: moist mucous membranes Eyes General: appearance normal, both eyes and all related structures Neck Neck: normal visual inspection Resp Effort & Inspection: normal respiratory effort and able to speak in complete sentences Cardio Rate: regular rate GI Palpation: tender Skin General skin exam: no rashes or lesions noted Neuro General: patient alert and patient oriented x3 Extrem General: normal to inspection Psych Mental Status: mental status grossly normal Course Vital Signs Vital signs: Vital Signs Temperature 36.7 C 01/04/23 08:58 Pulse 86 01/04/23 08:58 Respiratory Rate 20 01/04/23 08:58 Blood Pressure 117/53 L 01/04/23 08:58 Pulse Oximetry 100 01/04/23 08:58 Temperature 36.7 C 01/04/23 08:58 Temperature Source Temporal Artery Scan 01/04/23 08:58 Pulse 86 01/04/23 08:58 Respiratory Rate 20 01/04/23 08:58 Respiratory Effort Normal 01/04/23 09:01 Blood Pressure 117/53 L 01/04/23 08:58 Blood Pressure Position Sitting 01/04/23 08:58 Pulse Oximetry 100 01/04/23 08:58 Oxygen Delivery Method Room Air 01/04/23 08:58 Oxygen Flow Rate 0 01/04/23 08:58 Pain Level 10 01/04/23 08:58
[2023-01-04] MEDS: HYDROmorphone 2 MG/ML SYR 1 MG IVP (09:24)
[2023-01-04] MEDS: Normal Saline 1,000 ML 1000 ML IV (09:24)
[2023-01-04] MEDS: Normal Saline - Diluent 50 ML VIAL IJ ×2 (09:47→11:49)
[2023-01-04 09:55] LABS: ALT 32 U/L (14-59); AST 30 U/L (15-37); Albumin 4.5 g/dL (3.4-5.0); Alkaline Phosphatase 92 U/L (46-116); Anion Gap 13.1 mmol/L (3-11); BUN 10 mg/dL (7-18); Bilirubin, Total 0.6 mg/dL (0.2-1.0); CO2 24.9 mmol/L (21.0-32.0); CREATININE 0.7 mg/dL (0.55-1.02); Calcium 9.7 mg/dL (8.5-10.1); Chloride 99 mmol/L (98-107); Estimated GFR 100.19 (mL/min/1.73m2); Glucose 144 mg/dL (74-106); Potassium 4.1 mmol/L (3.5-5.1); Sodium 137 mmol/L (136-145); TSH (W/Ref FT4) 5.26 uIU/mL (0.36-3.74); Total Protein 8.7 g/dL (6.4-8.2)
--- NOTE | 2023-01-04 10:09 | NUR.NOTE ---
0964 this nurse assumed care of PT. PTs R AC AV was infultrated. no redness or warmth noted. Minor swelling noted. new IV inserted. Nursing Note:
[2023-01-04 10:10] LABS: Abs Immature Grans 0.05 10^3/uL (0.0-0.06); Absolute Basophil Count 0.04 10^3/uL (0.0-0.2); Absolute Eosinophil Count 0.01 10^3/uL (0.0-0.7); Absolute Lymphocyte Count 0.85 10^3/uL (1.2-3.4); Absolute Monocyte Count 0.61 10^3/uL (0.1-0.8); Absolute Neutrophil Count 10.72 10^3/uL (1.2-6.7); Basophils % 0.3; Eosinophils % 0.1; HCT 41.8 % (36.0-46.0); HGB 14.6 g/dL (11.2-15.7); Immature Grans % 0.4; Lymphocytes % 6.9; MCH 30.5 pg (27.0-33.0); MCHC 34.9 % (32.0-36.0); MCV 87 fL (80-95); MPV 10.4 fL (8.0-11.0); Neutrophils % 87.3; Platelet Count 226 10^3/uL (130-400); RBC 4.78 10^6/uL (3.93-5.22); RDW 13.4 % (11.7-14.6); RDW-SD 43.2 fL; WBC 12.28 10^3/uL (4.4-10.8)
[2023-01-04 10:11] LABS: FREE T4 1.28 ng/dL (0.76-1.46)
[2023-01-04 10:23] LABS: PTT Activated 22.3 sec (21.5-31.9); Prothrombin Time 10.5 sec (9.3-11.0)
--- NOTE | 2023-01-04 10:30 | DI.US_ITS ---
Exam(s) US PELVIS TRANSVAGINAL EXAM: US PELVIS TRANSVAGINAL CLINICAL HISTORY: abdominal pain, pelvic mass TECHNIQUE: Transabdominal and transvaginal imaging was performed using standard protocol. COMPARISON: CT CT ABDOMEN PELVIS W from 01/02/[address] THORAX ABD/PEL CTA from 01/04/2023 FINDINGS: Transabdominal images extremely limited due to lack of bladder distention. UTERUS: retroverted 4.9 x 2.6 x 2.9 cm Endometrium: 3 mm . Trace fluid in the endometrium. Myometrium: Unremarkable. Cervix: Calcifications. OVARIES: Right: Cyst or mass: None. Left: Left ovary not visualized on ultrasound. Appeared normal on CT. Heterogeneous mildly vascular mass measuring 5.5 x 3.6 x 6 cm containing a cystic area. This may rig ht arise from the right ovary. DOPPLER: Color: Mild hyperemia to the right ovary. CUL-DE-SAC: Free fluid: Small amount of free fluid. IMPRESSION: 1. Normal-appearing uterus with endometrial stripe within normal limits. 2. Mild hyperemia of the right ovary. Right adnexal mass. MRI recommended for further evaluation. DATA REPOSITORY:
[2023-01-04 10:52] LABS: Bilirubin Negative (Negative); Blood Negative (Negative); Clarity Clear (Clear); Glucose Negative (Negative); Ketones >=160 mg/dL (Negative); Leukocyte Esterase Negative (Negative); Nitrite Negative (Negative); Urobilinogen 0.2 mg/dL (Up to 0.2); pH >= 9.0 (5-8)
[2023-01-04 11:01] LABS: Bacteria Negative HPF (Negative); C & S Indicated? No; Casts Negative LPF (Negative); Crystals Moderate Amorphous HPF (Negative); Epithelial Cells Few HPF (Negative); Mucus Moderate (Negative); RBC 0-2 HPF (0-2); WBC 0-2 HPF (0-5)
--- NOTE | 2023-01-04 12:37 | DI.VRAD_ITS ---
PROCEDURE INFORMATION: Exam: CTA Chest With Contrast CTA Abdomen and Pelvis With Contrast Exam date and time: 01/04/2023 11:45 AM Age: 57 years old Clinical indication: Other: Right sided abdominal pain, lung nodule TECHNIQUE: Imaging protocol: Computed tomographic angiography of the chest with contrast. Exam focused on the arteries. Computed tomographic angiography of the abdomen and pelvis with contrast. Exam focused on the arteries. 3D rendering (Not supervised by radiologist): MIP and/or 3D reconstructed images were created by the technologist. Contrast material: OMNIPAQUE 350; Contrast volume: 100 ml; Contrast route: INTRAVENOUS (IV); COMPARISON: CT ABDOMEN PELVIS W 01/02/2023 10:34 PM FINDINGS: VASCULATURE: Pulmonary arteries: Normal. No pulmonary emboli. Aorta: No aortic aneurysm. No aortic dissection. Celiac trunk and mesenteric arteries: No occlusion or significant stenosis. Renal arteries: No occlusion or significant stenosis. Right iliac arteries: No occlusion or significant stenosis. Left iliac arteries: No occlusion or significant stenosis. CHEST: Lungs: 3 mm indeterminate pulmonary nodule in right lower lobe laterally best seen axial series 4, image 30. 2 mm subpleural nodule right lower lobe best seen axial series 4, image 32. 1 mm nodule right lung base laterally best seen axial series 4, image 43. Pleural spaces: Unremarkable. No pneumothorax. No pleural effusion. Heart: Unremarkable. No cardiomegaly. No pericardial effusion. Coronary arteries: No coronary artery calcifications. ABDOMEN AND PELVIS: Liver: Diffuse fatty infiltration of the liver. Gallbladder and bile ducts: Cholelithiasis. Pancreas: Unremarkable. No mass. No ductal dilation. Spleen: Calcified splenic granuloma. Adrenal glands: Unremarkable. No mass. Kidneys and ureters: Unremarkable. No solid mass. No hydronephrosis. Stomach and bowel: Unremarkable. No mucosal thickening. No evidence of obstruction. Appendix: No evidence of appendicitis. Intraperitoneal space: No free air. The free fluid that was seen in the pelvis on the prior exam is not seen today could be part of the loculated process and probable hematoma pelvis. Urinary bladder: Unremarkable. No mass. Reproductive: Masslike process in the low pelvis, between the lower uterine segment and rectum. This measures approximately 7 x 4 6 by 4.8 cm in transverse, AP, and craniocaudad dimension. It appears similar in size to the exam from 01/02/2023. This is possibly contiguous with the right ovary. The right ovary appears enlarged and heterogeneous, similar to the 01/02/2023 exam. See axial series 4 images 90 through 95. Right ovary measures approximately 4 cm in greatest craniocaudad dimension.. This masslike process suspicious for a hemorrhagic structure, possibly pelvic hematoma related to, possibly hemorrhagic ovarian cyst or ovarian neoplasm. Recommend further evaluation with MRI without and with gadolinium or ultrasound. Lymph nodes: Unremarkable. No enlarged lymph nodes. Bones/joints: Unremarkable. No acute fracture. Soft tissues: Unremarkable. IMPRESSION: 1. 7 cm masslike process between the lower uterine segment and the rectum suspicious for pelvic hematoma, possibly related to a hemorrhagic ovarian cyst or ovarian neoplasm. Recommend further evaluation with ultrasound contrast-enhanced MRI. There is no evidence of active hemorrhage in the process appears similar in size to the 01/02/2023 CT. 2. Few tiny indeterminate pulmonary nodules in right lower lung.For patients at low risk (minimal or absent history of smoking and of other known risk factors), no routine follow-up is indicated. For patients at high risk (history of smoking or of other known risk factors), consider optional CT Chest at 12 months. (Reference: Adrinana) References: Adrianna Cerrato, et al. Guidelines for Management of Incidental Pulmonary Nodules Detected on CT Images: From the Fleischner Society 2017. Radiology. 2017;284(1):228-243. Dictated and Authenticated by: Deanna Funez MD. Ordering:CARMEN Dickinson MD
--- NOTE | 2023-01-04 12:49 | NUR.NOTE ---
1230 PT returns from USNursing Note:
--- NOTE | 2023-01-04 13:34 | DI.VRAD_ITS ---
PROCEDURE INFORMATION: Exam: US Pelvis Complete, Transabdominal and US Pelvis, Transvaginal Exam date and time: 01/04/2023 11:47 AM Age: 57 years old Clinical indication: Abdominal pain and pelvic pain; Lower abdomen TECHNIQUE: Imaging protocol: Real-time complete transabdominal and transvaginal pelvic ultrasound with image documentation. Transvaginal imaging was used for better evaluation of the endometrium, adnexa, and/or cervix. COMPARISON: CT ABDOMEN PELVIS W 01/02/2023 10:34 PM FINDINGS: Uterus: Uterus measures 4.9 cm x 2.6 cm x 2.9 cm. The uterus measures 4.9 x 2.6 x 2.9 cm. Endometrial thickness 3 mm. Trace amount of fluid in the endometrial cavity. Right ovary/adnexa: Right ovary measures 4.1 cm x 2.1 cm x 2.2 cm. The right ovary measures 4.1 x 2.1 by 2.2 cm. Hypervascular heterogeneous right ovary. Left ovary/adnexa: Left ovary not visualized Intraperitoneal space: Heterogeneous nonvascular mass in the pelvis measuring 5.5 x 3.6 x 6 cm. This contains cystic spaces. Urinary bladder: Normal. IMPRESSION: 1. Heterogeneous nonvascular mass in the low pelvis corresponding to the mass seen on the CT scan. This remains indeterminate. It could be involving hematoma, hemorrhagic neoplasm, or sequelae ruptured hemorrhagic cyst or sequelae of pelvic inflammatory disease. Correlate with clinical scenario. MRI without and with gadolinium would be helpful in further evaluation 2. Heterogeneous hypervascular right ovary. 3. Nonvisualization of the left ovary THIS REPORT CONTAINS FINDINGS THAT MAY BE CRITICAL TO PATIENT CARE. The findings were verbally communicated via telephone conference with Alok Barron at 1:34 PM EDT on 01/04/2023. The findings were acknowledged and understood. Dictated and Authenticated by: Deanna Funez MD. Ordering:CARMEN Dickinson MD
--- NOTE | 2023-01-04 15:14 | W.GYNCONSULT ---
Date of service: 01/04/23 Time of Service: 15:14 Assessment and Plan Assessment and plan (1) Pelvic mass in female: Status: Acute Assessment and plan: We discussed her pelvic mass and that it is a bit unusual in appearance with no clear connection to the cervix, uterus or ovary. Possibilities include neoplasm, hematoma or infection. She has a mildly elevated WBC but no other signs of infection and no significant risk factors. I will add on tumor markers to her bloodwork and she already has a f/u appt scheduled next week. We discussed likely referral to [facility] chemical treatment operator/onc for further evaluation of the mass likely including surgical exploration. (2) Abdominal pain: Status: Acute Assessment and plan: Uncertain etiology of her abdominal pain but at this point it has significantly improved and she feels comfortable with discharge. We discussed the possibility of ovarian torsion, how that is dx'd, most likely sxms and sequelae. She is aware she can return at any time for worsening pain and that torsion could potentially happen again. We also discussed other potential etiology including the pelvic mass, bowel/appendix, ureters, and musculoskeletal system. I will contact the office friday to review her case with Dr. Block and [facility] will touch base with her to see how she is doing and determine if we can see her earlier in the week. Thank-you for this consult. Please contact [facility] with any further concerns. History of Present Illness Narrative: Ailyn presented to the ED this am with severe RLQ abdominal pain. She says her pain originally started 3 days ago. It was fairly mild at the time and was across her lower abdomen, not just the pelvis. She though it was her IBS acting up. She also had some nausea but no vomiting. By the evening of the following day her pain had worsened and she went to urgent care and then the ED where she had a CT scan that showed a pelvic mass measuring at least 4.9 x 4.3 cm in the cul-de-sac.? It lies in close proximity to the cervix, uterus and right ovary. She was also noted to have gall stones and at the time thought that might be the cause of her pain. Her pain had lessened so she went home with f/u at [facility] scheduled for this coming week. Yesterday she took it easy though was able to eat normally. She had the pain but it was not too sever. She took some alleive, which did not seem to help much. Then this am she woke around 5am with pretty severe RLQ pain. She thought maybe she needed to empty her bladder or have a BM because she hadn't had one on friday. But the pain persisted and was severe enough that she returned to the ED. By the time she arrived she was screaming in pain. While in the ED today she received dilaudid around 9:30 which seemed to eventually lead to relief of the pain. She had a repeat CT scan and a pelvic sono which was basically unchanged from 2 days ago. Sono showed: Heterogeneous nonvascular mass in the low pelvis corresponding to the mass seen on the CT scan.? This remains indeterminate.? It could be involving hematoma, hemorrhagic neoplasm, or sequelae ruptured hemorrhagic cyst or sequelae of pelvic inflammatory disease.?2. Heterogeneous hypervascular right ovary. 3. Nonvisualization of the left ovary. She denies significant urinary issues. She does report feeling a little bit of RLQ pressure that may increase her urinary urgency but no dysuria or frequency. She said she felt some chills when she was in extreme pain this am but not otherwise and she denies fevers. She is in a dedicated intermodal truck driver monogamous relationship. She has not sought routine chemical treatment operator care for many years and does not remember when her last pap smear was. She says menopause was in 2010 and she denies any bleeding since. She denies significant chemical treatment operator issues. She reports 2-3 miscarriages and no other pregnancies. Review of Systems All systems reviewed & are unremarkable except as noted in HPI and below Constitutional Constitutional: Denies chills and Denies fever(s) Cardiovascular Cardiovascular: Denies chest pain and Denies dyspnea Respiratory Respiratory: Denies cough and Denies dyspnea Gastrointestinal Gastrointestinal: Reports abdominal pain, Denies diarrhea, Reports nausea and Denies vomiting Genitourinary Genitourinary: Denies dysuria Integumentary/Breasts Skin/Breast: Denies rash Psychiatric Comments: Feels very anxious about this mass but is trying to stay positive. PFSH All Active Problems (Updated 01/04/23 @ 15:30 by Cesia Ford MD) Anxiety disorder (Acute) Pelvic mass in female (Acute) Abdominal pain (Acute) Cholelithiasis (Acute) Nausea (Acute) Strabismus (Acute) Medical History (Updated 01/04/23 @ 15:30 by Cesia Ford MD) Atypical mole Herpes zoster Seasonal allergic reaction Social History Smoking/Tobacco Use Status: Never Smoking risk assessment performed?: Yes Alcohol Intake: never Drug use: Never Substance use type: does not use Do you feel safe at home: Yes Do you feel safe in your relationship?: Yes Female Reproductive History Menstrual Menopause type: natural Exam Const Orientation: alert HENMT Head: normal to inspection Mouth: moist mucous membranes Neck Neck: normal visual inspection Resp Effort & Inspection: normal respiratory effort and able to speak in complete sentences Cardio Rate: regular rate GI Other: Pt with very minimal tenderness to palpation in the RLQ. No other abdominal tenderness at all. Exam done >5hrs s/p last pain medication dose. Other: Will plan for full pelvic exam at her f/u visit in a few days Neuro General: patient alert and patient oriented x3 Psych Mental Status: mental status grossly normal Results Last Vital Signs Temp 98.1 F 01/04/23 08:58 Pulse 114 H 01/04/23 14:46 Resp 20 01/04/23 08:58 BP 111/82 01/04/23 14:46 Pulse Ox 98 01/04/23 15:00 Labs 01/04/23 10:00 01/04/23 09:21 Labs: Laboratory Results - last 24 hr 01/04/23 01/04/23 01/04/23 09:21 09:21 09:21 WBC Cancelled RBC Cancelled Hgb Cancelled Hct Cancelled MCV Cancelled MCH Cancelled MCHC Cancelled RDW Cancelled Plt Count Cancelled MPV Cancelled Immature Gran % Cancelled Neutrophils % Cancelled Band Neutrophils % Cancelled Lymphocytes % Cancelled Atypical Lymphs % Cancelled Monocytes % Cancelled Eosinophils % Cancelled Basophils % Cancelled Metamyelocytes % Cancelled Myelocytes % Cancelled Promyelocytes % Cancelled Other Cells % Cancelled Nucleated RBC % Cancelled Absolute Neutrophils Cancelled Absolute Lymphocytes Cancelled Absolute Monocytes Cancelled Absolute Eosinophils Cancelled Absolute Basophils Cancelled RBC Morphology Cancelled Polychromasia Cancelled Hypochromasia Cancelled Poikilocytosis Cancelled Basophilic Stippling Cancelled Anisocytosis Cancelled Microcytosis Cancelled Macrocytosis Cancelled Spherocytes Cancelled Tear Drop Cells Cancelled Ovalocytes Cancelled Stomatocytes Cancelled [place]ene[place] Bodies Cancelled [place] Cells/Echinocytes Cancelled Acanthocytes (Spur) Cancelled Schistocytes Cancelled PT Cancelled INR Cancelled APTT Cancelled Sodium 137 Potassium 4.1 Chloride 99 Carbon Dioxide 24.9 Anion Gap 13.1 H BUN 10 Creatinine 0.7 Est GFR (CKD-EPI 2020) 100.19 Glucose 144 H Calcium 9.7 Magnesium 2.0 Total Bilirubin 0.6 AST 30 ALT 32 Alkaline Phosphatase 92 Total Protein 8.7 H Albumin 4.5 TSH 5.26 H Free T4 1.28 Urine Color Urine Clarity Urine pH Ur Specific [place] Urine Protein Urine Ketones Urine Blood Urine Nitrite Urine Bilirubin Urine Urobilinogen Ur Leukocyte Esterase Urine RBC Urine WBC Ur Epithelial Cells Urine Crystals Urine Bacteria Urine Casts Urine Mucus Ur Culture Indicated? Urine Glucose 01/04/23 01/04/23 01/04/23 10:00 10:00 10:40 WBC 12.28 H RBC 4.78 Hgb 14.6 Hct 41.8 MCV 87 MCH 30.5 MCHC 34.9 RDW 13.4 Plt Count 226 MPV 10.4 Immature Gran % 0.4 Neutrophils % 87.3 Band Neutrophils % Lymphocytes % 6.9 Atypical Lymphs % Monocytes % 5.0 Eosinophils % 0.1 Basophils % 0.3 Metamyelocytes % Myelocytes % Promyelocytes % Other Cells % Nucleated RBC % 0.0 Absolute Neutrophils 10.72 H Absolute Lymphocytes 0.85 L Absolute Monocytes 0.61 Absolute Eosinophils 0.01 Absolute Basophils 0.04 RBC Morphology Polychromasia Hypochromasia Poikilocytosis Basophilic Stippling Anisocytosis Microcytosis Macrocytosis Spherocytes Tear Drop Cells Ovalocytes Stomatocytes [place] Bodies Oneil Cells/Echinocytes Acanthocytes (Spur) Schistocytes PT 10.5 INR 1.0 APTT 22.3 Sodium Potassium Chloride Carbon Dioxide Anion Gap BUN Creatinine Est GFR (CKD-EPI 2020) Glucose Calcium Magnesium Total Bilirubin AST ALT Alkaline Phosphatase Total Protein Albumin TSH Free T4 Urine Color Yellow Urine Clarity Clear Urine pH >= 9.0 H Ur Specific [place] 1.020 Urine Protein 100 H Urine Ketones >=160 H Urine Blood Negative Urine Nitrite Negative Urine Bilirubin Negative Urine Urobilinogen 0.2 Ur Leukocyte Esterase Negative Urine RBC 0-2 Urine WBC 0-2 Ur Epithelial Cells Few Urine Crystals Moderate Amorphous Urine Bacteria Negative Urine Casts Negative Urine Mucus Moderate Ur Culture Indicated? No Urine Glucose Negative Imaging Abdomen CT scan report/results: report reviewed US - pelvic: report reviewed and image reviewed
[2023-01-06 11:39] LABS: CA 19-9 39 U/mL (<35)
[2023-01-06 11:44] LABS: CA 125 13 U/mL (<30)
[2023-01-06 15:53] LABS: HE4 46 pmol/L (<=140)
== END 2023-01-04 15:39 | disposition home or self-care (01) ==
PROVIDERS: Obstetrics & Gynecology; Emergency Provider Emergency Medicine; PCP Nurse Practitioner Family
DX: R19.09 Other intra-abdominal and pelvic swelling, mass and lump (principal); N83.8 Other noninflammatory disorders of ovary, fallopian tube and broad ligament
CPT/HCPCS: 36415; 71275; 80053; 86304; 86305; 96361; 96374; 99285; 74174; 76830; 76856; 81003; 81015; 82378; 83735; 84439; 84443; 85025; 85610; 85730; 86301; 99284; J1170

== ENCOUNTER 2023-01-08 10:30 | Outpatient (REF) | payer BC, SELFPAY ==
--- NOTE | 2023-01-08 08:45 | PAPFT_PTH ---
PATIENT: Ailyn Merrill LOC: YO U#:[id number] AGE/SX: 57/F ROOM: RE01/08/[address]: Cesia Ford MD : [id number] BED: DIS: 01/08/2023 SPEC #: [id number] RECD: 01/08/23 13:08 STATUS: ANALIA REKeri #: [id number] SRIDEVI: 01/08/23 08:[address]: Cesia Ford DEPT: [facility] Cytology RECD BY: Gemini Bruce Tissues: 1 - CX/ENDOCX FOR PAP SMEARS Procedures: PAP THIN PREP/UVM Screening HPV DNA PROBE Comments: [id number]
== END 2023-01-08 10:31 | disposition home or self-care (01) ==
LOC: LBN 10:30
PROVIDERS: Visit Provider Obstetrics & Gynecology
DX: Z12.4 Encounter for screening for malignant neoplasm of cervix (principal); Z11.51 Encounter for screening for human papillomavirus (HPV)
CPT/HCPCS: 88142; 87624

== ENCOUNTER 2023-09-12 13:53 | Emergency (ER) | payer BC, SELFPAY ==
[2023-09-12 13:55] VITALS: BP 185/78; PULSE 105; RESP 18; TEMP 36.6
--- NOTE | 2023-09-12 14:04 | ED.GENADUL_ITS ---
Discharge Plan Disposition Patient Disposition: Home Discharge Details Clinical Impression: Laceration of right hand Primary Care Provider: Unknown,Unknown ED Provider: Mayo Villavicencio Home Meds and New Rx's Prescriptions: Continued mecobalamin (vitamin B12) 500 mcg tablet,chewable PO cholecalciferol (vitamin D3) 10 mcg (400 unit) capsule 10 mcg PO DAILY multivitamin [One Daily] 1 EACH tablet 1 ea PO DAILY oxycodone 5 mg tablet 5 mg PO TID PRN (Reason: pain) Qty: 10 0RF ondansetron 4 mg tablet,disintegrating 4 mg PO .Every 3 hours PRNQty: 10 0RF Discharge Instructions Instructions: Laceration (ED) Additional Instructions: You were seen in the emergency department for your [ ] laceration which was closed with [ ] sutures that will need to be removed in 7 to 10 days. As we discussed, please keep your wound clean, dry and covered. Please do not soak in a tub, swim or engage in any activities which could introduce dirt into your wound. You may return to the emergency department, go to urgent care or go to your primary care provider in 7 to 10 days to have your stitches removed. As we discussed if you develop any foul-smelling drainage fevers streaking signs of infection or have any other concerns please return to the emergency department. For your pain please take medications as follows: 1. Take acetaminophen (Tylenol), 1,000 mg (two 500 mg tabs) every 6 hours [2. Take ibuprofen (Advil), 400 mg every 6 hours.] Discharge Data Discharge Date/Time-TO BE ENTERED AT DEPARTURE: 09/12/23 15:12 HPI General Date/Time Provider Initiated Documentation: 09/12/23 14:04 . HPI Narrative: MDM This is an overall very well-appearing initially tachycardic but normothermic [id number] female with subcutaneous small laceration to ulnar side of right hand which will require primary closure and tetanus immunization. Patient did have her tetanus last updated in 2019 however will redose this. No pain out of proportion to suggest necrotizing soft tissue infection. No underlying bony tenderness and very limited mechanism of injury so my suspicion is exceedingly low for any acute osseous abnormalities so will defer plain films. Patient has intact strength and sensation throughout her hand and based on her subcutaneous laceration my suspicion for tendon injury is exceedingly low. 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 Please see procedure note concerning details of laceration repair. Patient understood return indications and was discharged with empiric trial of expectant outpatient management. 3 PM Improve repeat vitals. Patient does tell me she gets anxious going to the hospital. She reports that her blood pressure is usually 114 mmHg systolic at home. Given that her blood pressure and tachycardia improved we will continue with plan for empiric trial of discharge with expectant outpatient management. HPI This is a [id number] 58-year-old female arrived to the emergency department in the setting of a laceration she sustained approximately 30 minutes prior to arrival to the ulnar side of her right hand. Patient reports that she was reaching under her car seat and inadvertently scraped her right hand. She r eports her tetanus was last updated in 2019. She denies history of diabetes and use of anticoagulants. She denies routine tobacco, ethanol, and illicits. No other injuries. Exam General: Well-appearing in no acute distress speaking in complete sentences. Head: Normocephalic, atraumatic. Eye: Extraocular eye movements intact. No conjunctival injection. No scleral icterus. Ear, nose, mouth, throat: Grossly normal inspection. Normal voice, handling secretions normally. Neck: Trachea midline. Cardiovascular: Well-perfused distal extremities. Respiratory: Nonlabored respiration. Gastrointestinal: Nondistended abdomen. Musculoskeletal: Right hand warm and well-perfused with 2+ right radial pulse. On the ulnar aspect of the right hand there is a hemostatic approximately 3 cm laceration that violates the subcutaneous tissue between the wrist and the MCP joint of the right little finger. Sensation and motor function intact to the entire right hand across the radial, median, and ulnar nerve distributions. Cap refill less than 2 seconds in the right fingertips. Skin: Normal for age and race, grossly normal temperature and turgor. No acute rash. Neurologic: Alert and appropriate, no apparent acute deficits. Psychiatric: Mood and manner are appropriate. Grooming and personal hygiene are appropriate. Related Data Home Medications Medication Instructions Recorded Confirmed multivitamin (One Daily tablet) 1 ea PO DAILY 09/12/15 01/08/23 ondansetron 4 mg disintegrating 4 mg PO .Every 3 hours PRN #10 tabs 01/03/23 01/08/23 tablet oxycodone 5 mg tablet 5 mg PO TID PRN pain #10 tabs 01/04/23 01/08/23 cholecalciferol (vitamin D3) 10 10 mcg PO DAILY 01/08/23 01/08/23 mcg (400 unit) capsule mecobalamin (vitamin B12) 500 mcg mcg PO 01/08/23 01/08/23 chewable tablet Previous Rx's Medication Instructions Recorded ondansetron 4 mg disintegrating 4 mg PO .Every 3 hours PRN #10 tabs 01/03/23 tablet oxycodone 5 mg tablet 5 mg PO TID PRN pain #10 tabs 01/04/23 Allergies Allergy/AdvReac Type Severity Reaction Status Date / Time amoxicillin Allergy Severe RASH Verified 09/12/23 13:59 latex Allergy Severe RASH Verified 09/12/23 13:59 Penicillins Allergy Severe RASH Verified 09/12/23 13:59 adhesive Allergy Intermediate Redness Verified 09/12/23 13:59 and Swelling benzalkonium Allergy Intermediate Skin Verified 09/12/23 13:59 Redness and Swelling doxycycline AdvReac Intermediate Skin Rash Verified 09/12/23 13:59 vaccine adjuvant system, AdvReac Intermediate Localized Verified 09/12/23 13:59 [id number] liposomal swelling, [From Shingrix (PF)] nausea, GI sx, fatigue varicella-zoster virus AdvReac Intermediate Localized Verified 09/12/23 13:59 glycoprotein E, recombinant swelling, [From Shingrix (PF)] nausea, GI sx, fatigue seafood Allergy Unknown Anaphylaxis Uncoded 09/12/23 13:59 General Stated Complaint: Laceration WALLACE: 3 Course Vital Signs Vital signs: Vital Signs Temperature 36.6 C 09/12/23 13:55 Pulse 105 H 09/12/23 13:55 Respiratory Rate 18 09/12/23 13:55 Blood Pressure 185/78 H 09/12/23 13:55 Temperature 36.6 C 09/12/23 13:55 Temperature Source Skin 09/12/23 13:55 Pulse 105 H 09/12/23 13:55 Respiratory Rate 18 09/12/23 13:55 Respiratory Effort Normal 09/12/23 13:58 Blood Pressure 185/78 H 09/12/23 13:55 Blood Pressure Position Sitting 09/12/23 13:55 Pain Level 5 09/12/23 14:02 Procedures Laceration Laceration 1: Site: hand Side (If applicable): right Size (cm): 3 Description: linear Depth: simple, single layer Local Anesthetic: Lidocaine 2%, with Epi and other anesthetic (L ET) Amount of anesthesia used (mL): 5 Pre-repair: wound explored and irrigated extensively (Irrigated for approximately 1 minute in the sink) Skin layer closed with: other (Prolene) Size (cm): 5-0 Number of sutures: 3 Technique: simple, interrupted Medical Decision Making Quality:SDOH Health Related Social Needs: No Data to Display PFSH All Active Problems (Updated 09/12/23 @ 14:20 by Mayo Villavicencio MD) Laceration of right hand (Acute) Anxiety disorder (Acute) Medical History Atypical mole Herpes zoster Seasonal allergic reaction Social History Smoking/Tobacco Use Status: Never Smoking risk assessment performed?: Yes Alcohol Intake: never Drug use: Never Substance use type: does not use Do you feel safe at home: Yes Do you feel safe in your relationship?: Yes Female Reproductive History Menstrual Menopause type: natural
[2023-09-12 14:09] VITALS: PULSE 94; O2SAT 98
[2023-09-12] MEDS: Lidocaine/Epinephri/Tetracaine Topical Gel 3 ML TP (14:15)
[2023-09-12] MEDS: Ibuprofen 600 MG TAB PO (14:35)
[2023-09-12] MEDS: Acetaminophen 500 MG TAB 1000 MG PO (14:36)
[2023-09-12 14:57] VITALS: BP 143/50; PULSE 81; RESP 16; O2SAT 100
[2023-09-12 15:05] VITALS: BP 143/50; PULSE 81; RESP 16; O2SAT 100
== END 2023-09-12 15:12 | disposition home or self-care (01) ==
PROVIDERS: Emergency Provider Emergency Medicine
DX: S61.411A Laceration without foreign body of right hand, initial encounter (principal); W22.8XXA Striking against or struck by other objects, initial encounter
CPT/HCPCS: 12002; 90471; 90715